=== PATIENT | male | born 1935 ===

== ENCOUNTER 2020-03-04 04:43 | Day surgery (SDC) | payer OTHER ==
[~2020-03-04 04:43] MED LIST: COZAAR100 MG PO; FORTAMET500 MG PO; HORIZANT300 MG PO; LEVOTHY PO; MAXIMUM D3325 MCG PO; SIMVAST PO; TAMS0.4C PO
[2020-03-04] MEDS ORDERED: PERCOCET 5-3251 EACH PO (09:33)
== END 2020-03-04 13:35 | disposition home or self-care (01) ==
LOC: CIR.AMB 04:43 → CIR LITO 09:00 → CIR.AMB 09:15
PROVIDERS: ATTEND Surgery
DX: C73 Malignant neoplasm of thyroid gland (principal); Z20.828 Contact with and (suspected) exposure to other viral communicable diseases